=== PATIENT | female | born 1970 | race Caucasian/White ===

== ENCOUNTER 2019-08-12 21:36 | Emergency (ER) | payer OTHER ==
[~2019-08-12] VITALS: Ht 170.2 cm; Wt 68.0 kg
[2019-08-12] MEDS ORDERED: PROPRANOLOL HCL10 MG PO (22:07)
[2019-08-13] MEDS ORDERED: ZYRTEC10 MG PO (00:45)
[2019-08-13] MEDS ORDERED: ZANTAC150 MG PO (00:45)
[2019-08-13] MEDS ORDERED: MEDROLPACK PO (00:45)
== END 2019-08-13 02:34 | disposition home or self-care (01) ==
LOC: ER 21:36
DX: T78.1XXA Other adverse food reactions, not elsewhere classified, initial encounter (principal); R21 Rash and other nonspecific skin eruption